=== PATIENT | male | born 1955 | race Caucasian/White ===

== ENCOUNTER 2017-12-18 14:35 | Inpatient (IN) | payer BC ==
[~2017-12-18] VITALS: Ht 190.5 cm; Wt 83.9 kg
[2017-12-18 18:35] VITALS: BP_SYST 136
[2017-12-18 19:00] VITALS: BP_SYST 136
[2017-12-18] MEDS: KCL 20 mEq in D5W 1000 mL 1,000 ML IV SCH (19:15)
[2017-12-18] MEDS ORDERED: HYDROmorphone 2 MG/ML VIAL IVP PRN (20:00)
[2017-12-18] MEDS ORDERED: metroNIDAZOLE 500 mg/NS 100 ML IV ONE (20:13)
[2017-12-18] MEDS: HYDROmorphone 2 MG/ML VIAL IVP PRN (20:14)
[2017-12-18] MEDS ORDERED: DIPHENHYDRAMINE INJ 50 MG/ML VIAL IVP PRN (21:15)
[2017-12-18] MEDS ORDERED: DOCUSATE SODIUM 100 MG CAPSULE PO PRN (21:15)
[2017-12-18] MEDS ORDERED: ACETAMINOPHEN 325 MG TABLET PO PRN (21:15)
[2017-12-18] MEDS ORDERED: LORazepam 1 MG TABLET PO PRN (21:15)
[2017-12-18] MEDS ORDERED: MAGNESIUM OXIDE 400 MG TABLET PO PRN (21:15)
[2017-12-18] MEDS ORDERED: METOPROLOL TARTRATE 50 MG TABLET PO SCH (21:15)
[2017-12-18] MEDS ORDERED: HYDROcodone/ACETAMIN 10-325 MG TAB PO PRN (21:15)
[2017-12-18] MEDS ORDERED: KCL 20 mEq in 100 mL (PREMIX) 100 ML IV ONE (21:35)
[2017-12-18] MEDS: metroNIDAZOLE 500 mg/NS 100 ML IV SCH (23:07)
[2017-12-18] MEDS: ONDANSETRON HCL 4 MG/2 ML VIAL IVP PRN (23:40)
[2017-12-19] MEDS: HYDROmorphone 2 MG/ML VIAL IVP PRN ×6 (00:16→22:30)
[2017-12-19 00:27] VITALS: BP_SYST 125
[2017-12-19] MEDS: KCL 20 mEq in D5W 1000 mL 1,000 ML IV SCH ×2 (03:15→11:03)
[2017-12-19] MEDS: ONDANSETRON HCL 4 MG/2 ML VIAL IVP PRN ×5 (06:02→22:29)
[2017-12-19 07:57] VITALS: BP_SYST 117
[2017-12-19] MEDS: LACTOBACILLUS RHAMNOSUS GG 1 CAP CAPSULE PO SCH (08:27)
[2017-12-19] MEDS: SIMETHICONE 80 MG TAB.CHEW PO SCH ×3 (08:28→20:41)
[2017-12-19] MEDS: TAMSULOSIN HCL 0.4 MG CAP PO SCH (08:28)
[2017-12-19] MEDS: ASPIRIN 81 MG TAB.CHEW PO SCH (08:28)
[2017-12-19] MEDS: metroNIDAZOLE 500 mg/NS 100 ML IV SCH (08:40)
[2017-12-19] MEDS: cefTRIAXone 1 GM in D5W 50 ML IV SCH (08:40)
[2017-12-19] MEDS: amLODIPine BESYLATE 10 MG TABLET PO SCH (09:00)
[2017-12-19] MEDS ORDERED: FAMOTIDINE 20 MG TABLET PO SCH (09:00)
[2017-12-19] MEDS ORDERED: POTASSIUM CHLORIDE 20 MEQ/PKT PACKET PO SCH (09:00)
[2017-12-19] MEDS: AMIODARONE HCL 200 MG TABLET PO SCH (09:34)
[2017-12-19 09:37] VITALS: BP_SYST 118
[2017-12-19] MEDS: RIVAROXABAN 10 MG TABLET PO SCH (11:00)
[2017-12-19 12:40] VITALS: BP_SYST 112
[2017-12-19 16:40] VITALS: BP_SYST 120
[2017-12-19 20:00] VITALS: BP_SYST 134
[2017-12-19] MEDS: ATORVASTATIN 20 MG TABLET PO SCH (20:41)
[2017-12-20] VITALS (7 sets, daily range): BP systolic 106–125
[2017-12-20] MEDS: ONDANSETRON HCL 4 MG/2 ML VIAL IVP PRN ×5 (02:40→22:59)
[2017-12-20] MEDS: HYDROmorphone 2 MG/ML VIAL IVP PRN ×4 (02:40→18:47)
[2017-12-20 06:41] LABS: CALCIUM 7.8 mg/dL (8.4-11.0); CREATININE 1.77 mg/dL (0.55-1.30); PHOSPHORUS 3.9 mg/dL (2.7-4.5); POTASSIUM 3.7 mmol/L (3.5-5.1)
[2017-12-20] MEDS: KCL 20 mEq in D5W 1000 mL 1,000 ML IV SCH ×3 (06:48→23:06)
[2017-12-20 07:02] LABS: BASOPHILS % (AUTO) 0.3 % (0.0-2.0); EOSINOPHILS # (AUTO) 0.2 K/uL (0.0-0.4); EOSINOPHILS % (AUTO) 1.6 % (0.0-4.0); HEMATOCRIT 24.1 % (36-48); HEMOGLOBIN 8.5 g/dL (12.0-16.0); LYMPHOCYTES # (AUTO) 1.1 K/uL (1.0-5.5); LYMPHOCYTES % (AUTO) 7.2 % (20.5-51.5); MEAN CORPUSCULAR HEMOGLOBIN 35 pg (27-31); MEAN CORPUSCULAR HGB CONC 35 % (32-36); MEAN CORPUSCULAR VOLUME 100 fL (79.0-98.0); MONOCYTES # (AUTO) 1.1 K/uL (0.0-1.0); MONOCYTES % (AUTO) 7.8 % (1.7-9.3); NEUTROPHILS # (AUTO) 12.3 K/uL (1.8-7.7); NEUTROPHILS % (AUTO) 83.1 % (40.0-70.0); PLATELET COUNT (AUTO) 387 K/uL (130-430); RED BLOOD CELL COUNT(AUTO) 2.42 MIL/uL (4.2-6.2); RED CELL DISTRIBUTION WIDTH 15.6 % (9.0-15.0); WHITE BLOOD COUNT (AUTO) 14.7 K/uL (4.8-10.8)
[2017-12-20] MEDS: cefTRIAXone 1 GM in D5W 50 ML IV SCH (09:46)
[2017-12-20] MEDS ORDERED: MAGNESIUM SULFATE 50 ML IV ONE (10:15)
[2017-12-20] MEDS: TAMSULOSIN HCL 0.4 MG CAP PO SCH (11:06)
[2017-12-20] MEDS: LACTOBACILLUS RHAMNOSUS GG 1 CAP CAPSULE PO SCH (11:06)
[2017-12-20] MEDS: SIMETHICONE 80 MG TAB.CHEW PO SCH ×3 (11:06→20:23)
[2017-12-20] MEDS: RIVAROXABAN 10 MG TABLET PO SCH (11:06)
[2017-12-20] MEDS: amLODIPine BESYLATE 10 MG TABLET PO SCH (11:07)
[2017-12-20] MEDS: ASPIRIN 81 MG TAB.CHEW PO SCH (11:07)
[2017-12-20] MEDS: AMIODARONE HCL 200 MG TABLET PO SCH (11:08)
[2017-12-20] MEDS: ATORVASTATIN 20 MG TABLET PO SCH (20:23)
[2017-12-21] MEDS ORDERED: KCL 20 mEq in 100 mL (PREMIX) 100 ML IV ONE (04:10)
[2017-12-21 07:03] LABS: BASOPHILS # (AUTO) 0.1 K/uL (0.0-0.2); BASOPHILS % (AUTO) 0.5 % (0.0-2.0); EOSINOPHILS # (AUTO) 0.5 K/uL (0.0-0.4); HEMATOCRIT 24.6 % (36-48); HEMOGLOBIN 8.5 g/dL (12.0-16.0); LYMPHOCYTES # (AUTO) 1.2 K/uL (1.0-5.5); LYMPHOCYTES % (AUTO) 9.4 % (20.5-51.5); MEAN CORPUSCULAR HEMOGLOBIN 34 pg (27-31); MEAN CORPUSCULAR HGB CONC 35 % (32-36); MEAN CORPUSCULAR VOLUME 98 fL (79.0-98.0); MONOCYTES # (AUTO) 1.2 K/uL (0.0-1.0); MONOCYTES % (AUTO) 9.4 % (1.7-9.3); NEUTROPHILS # (AUTO) 9.5 K/uL (1.8-7.7); NEUTROPHILS % (AUTO) 76.7 % (40.0-70.0); PLATELET COUNT (AUTO) 425 K/uL (130-430); RED BLOOD CELL COUNT(AUTO) 2.52 MIL/uL (4.2-6.2); RED CELL DISTRIBUTION WIDTH 15.2 % (9.0-15.0); WHITE BLOOD COUNT (AUTO) 12.5 K/uL (4.8-10.8)
[2017-12-21 07:08] LABS: CREATININE 1.57 mg/dL (0.55-1.30); PHOSPHORUS 3.7 mg/dL (2.7-4.5); POTASSIUM 3.4 mmol/L (3.5-5.1)
[2017-12-21 08:00] VITALS: BP_SYST 120; BP_SYST 128
[2017-12-21] MEDS: cefTRIAXone 1 GM in D5W 50 ML IV SCH (09:45)
[2017-12-21] MEDS: SIMETHICONE 80 MG TAB.CHEW PO SCH ×4 (09:45→20:50)
[2017-12-21] MEDS: PANTOPRAZOLE SODIUM 40 MG/VIAL (PROTONIX) IVP SCH (09:45)
[2017-12-21] MEDS: LACTOBACILLUS RHAMNOSUS GG 1 CAP CAPSULE PO SCH (09:46)
[2017-12-21] MEDS: TAMSULOSIN HCL 0.4 MG CAP PO SCH (09:46)
[2017-12-21] MEDS: ASPIRIN 81 MG TAB.CHEW PO SCH (09:46)
[2017-12-21] MEDS: RIVAROXABAN 10 MG TABLET PO SCH (09:46)
[2017-12-21] MEDS: amLODIPine BESYLATE 10 MG TABLET PO SCH (09:55)
[2017-12-21] MEDS: AMIODARONE HCL 200 MG TABLET PO SCH (09:56)
[2017-12-21] MEDS: ONDANSETRON HCL 4 MG/2 ML VIAL IVP PRN (14:22)
[2017-12-21 15:41] VITALS: BP_SYST 110
[2017-12-21 16:00] VITALS: BP_SYST 118
[2017-12-21] MEDS: KCL 20 mEq in D5W 1000 mL 1,000 ML IV SCH ×2 (16:30→17:54)
[2017-12-21 20:10] VITALS: BP_SYST 124
[2017-12-21] MEDS: ATORVASTATIN 20 MG TABLET PO SCH (20:50)
[2017-12-22] MEDS: KCL 20 mEq in D5W 1000 mL 1,000 ML IV SCH (00:23)
[2017-12-22 00:58] VITALS: BP_SYST 121
[2017-12-22 06:21] LABS: BASOPHILS % (AUTO) 0.4 % (0.0-2.0); EOSINOPHILS # (AUTO) 0.3 K/uL (0.0-0.4); EOSINOPHILS % (AUTO) 2.5 % (0.0-4.0); HEMATOCRIT 24.1 % (36-48); HEMOGLOBIN 8.3 g/dL (12.0-16.0); LYMPHOCYTES # (AUTO) 1.1 K/uL (1.0-5.5); LYMPHOCYTES % (AUTO) 9.4 % (20.5-51.5); MEAN CORPUSCULAR HEMOGLOBIN 33 pg (27-31); MEAN CORPUSCULAR HGB CONC 35 % (32-36); MEAN CORPUSCULAR VOLUME 97 fL (79.0-98.0); MONOCYTES # (AUTO) 1.1 K/uL (0.0-1.0); MONOCYTES % (AUTO) 9.3 % (1.7-9.3); NEUTROPHILS # (AUTO) 9.1 K/uL (1.8-7.7); NEUTROPHILS % (AUTO) 78.4 % (40.0-70.0); PLATELET COUNT (AUTO) 443 K/uL (130-430); RED BLOOD CELL COUNT(AUTO) 2.49 MIL/uL (4.2-6.2); RED CELL DISTRIBUTION WIDTH 15.8 % (9.0-15.0); WHITE BLOOD COUNT (AUTO) 11.6 K/uL (4.8-10.8)
[2017-12-22 06:47] LABS: ALBUMIN 2.2 g/dL (3.4-4.8); CALCIUM 7.8 mg/dL (8.4-11.0); CREATININE 1.6 mg/dL (0.55-1.30); PHOSPHORUS 3.5 mg/dL (2.7-4.5); POTASSIUM 3.4 mmol/L (3.5-5.1); TOTAL BILIRUBIN 0.5 mg/dL (0.0-1.0)
[2017-12-22 06:57] LABS: TOTAL IRON BIND. CAPACITY 118 ug/dL (250-450)
[2017-12-22 08:00] VITALS: BP_SYST 114
[2017-12-22 11:59] VITALS: BP_SYST 145
[2017-12-22] MEDS: PANTOPRAZOLE SODIUM 40 MG/VIAL (PROTONIX) IVP SCH (14:15)
[2017-12-22] MEDS: TAMSULOSIN HCL 0.4 MG CAP PO SCH (14:15)
[2017-12-22] MEDS: LACTOBACILLUS RHAMNOSUS GG 1 CAP CAPSULE PO SCH (14:15)
[2017-12-22] MEDS: SIMETHICONE 80 MG TAB.CHEW PO SCH ×3 (14:16→20:32)
[2017-12-22] MEDS: ASPIRIN 81 MG TAB.CHEW PO SCH (14:16)
[2017-12-22] MEDS: RIVAROXABAN 10 MG TABLET PO SCH (14:18)
[2017-12-22] MEDS: amLODIPine BESYLATE 10 MG TABLET PO SCH (14:20)
[2017-12-22] MEDS: AMIODARONE HCL 200 MG TABLET PO SCH (14:27)
[2017-12-22 20:00] VITALS: BP_SYST 113
[2017-12-22] MEDS: ATORVASTATIN 20 MG TABLET PO SCH (20:32)
[2017-12-23] VITALS (7 sets, daily range): BP systolic 92–133
[2017-12-23] MEDS: KCL 20 mEq in D5W 1000 mL 1,000 ML IV SCH ×2 (00:30→08:30)
[2017-12-23 07:17] LABS: BASOPHILS % (AUTO) 0.4 % (0.0-2.0); EOSINOPHILS # (AUTO) 0.4 K/uL (0.0-0.4); EOSINOPHILS % (AUTO) 3.5 % (0.0-4.0); HEMATOCRIT 25.1 % (36-54); HEMOGLOBIN 8.6 g/dL (14.0-18.0); LYMPHOCYTES # (AUTO) 1.7 K/uL (1.0-5.5); LYMPHOCYTES % (AUTO) 13.7 % (20.5-51.5); MEAN CORPUSCULAR HEMOGLOBIN 33 pg (27-31); MEAN CORPUSCULAR HGB CONC 34 % (32-36); MEAN CORPUSCULAR VOLUME 95 fL (79.0-98.0); MONOCYTES # (AUTO) 1.4 K/uL (0.0-1.0); MONOCYTES % (AUTO) 11.7 % (1.7-9.3); NEUTROPHILS # (AUTO) 8.7 K/uL (1.8-7.7); NEUTROPHILS % (AUTO) 70.7 % (40.0-70.0); PLATELET COUNT (AUTO) 483 K/uL (130-430); RED BLOOD CELL COUNT(AUTO) 2.65 MIL/uL (4.2-6.2); RED CELL DISTRIBUTION WIDTH 15.6 % (9.0-15.0); WHITE BLOOD COUNT (AUTO) 12.2 K/uL (4.8-10.8)
[2017-12-23 07:50] LABS: CREATININE 1.49 mg/dL (0.55-1.30); POTASSIUM 3.7 mmol/L (3.5-5.1)
[2017-12-23] MEDS: SIMETHICONE 80 MG TAB.CHEW PO SCH ×3 (08:42→20:21)
[2017-12-23] MEDS: PANTOPRAZOLE SODIUM 40 MG/VIAL (PROTONIX) IVP SCH (08:42)
[2017-12-23] MEDS: amLODIPine BESYLATE 10 MG TABLET PO SCH (08:43)
[2017-12-23] MEDS: ASPIRIN 81 MG TAB.CHEW PO SCH (08:43)
[2017-12-23] MEDS: TAMSULOSIN HCL 0.4 MG CAP PO SCH (08:44)
[2017-12-23] MEDS: RIVAROXABAN 10 MG TABLET PO SCH (08:44)
[2017-12-23] MEDS: AMIODARONE HCL 200 MG TABLET PO SCH (08:44)
[2017-12-23] MEDS: LACTOBACILLUS RHAMNOSUS GG 1 CAP CAPSULE PO SCH (08:44)
[2017-12-23] MEDS ORDERED: AMIO100T4 PO (09:47)
[2017-12-23] MEDS ORDERED: METO-442 PO (09:48)
[2017-12-23] MEDS ORDERED: AMLO2.5T2 PO (09:48)
[2017-12-23] MEDS ORDERED: LIP40 PO (09:48)
[2017-12-23] MEDS ORDERED: RIVA1TAB PO (09:49)
[2017-12-23] MEDS: ATORVASTATIN 20 MG TABLET PO SCH (20:17)
[2017-12-24 01:23] VITALS: BP_SYST 100
[2017-12-24 06:53] LABS: BASOPHILS # (AUTO) 0.1 K/uL (0.0-0.2); BASOPHILS % (AUTO) 0.7 % (0.0-2.0); EOSINOPHILS # (AUTO) 0.5 K/uL (0.0-0.4); EOSINOPHILS % (AUTO) 4.3 % (0.0-4.0); HEMATOCRIT 25.8 % (36-54); HEMOGLOBIN 8.9 g/dL (14.0-18.0); LYMPHOCYTES # (AUTO) 1.7 K/uL (1.0-5.5); LYMPHOCYTES % (AUTO) 14.1 % (20.5-51.5); MEAN CORPUSCULAR HEMOGLOBIN 33 pg (27-31); MEAN CORPUSCULAR HGB CONC 35 % (32-36); MEAN CORPUSCULAR VOLUME 96 fL (79.0-98.0); MONOCYTES # (AUTO) 1.5 K/uL (0.0-1.0); MONOCYTES % (AUTO) 12.6 % (1.7-9.3); NEUTROPHILS # (AUTO) 8.1 K/uL (1.8-7.7); NEUTROPHILS % (AUTO) 68.3 % (40.0-70.0); PLATELET COUNT (AUTO) 459 K/uL (130-430); RED BLOOD CELL COUNT(AUTO) 2.69 MIL/uL (4.2-6.2); RED CELL DISTRIBUTION WIDTH 15.5 % (9.0-15.0); WHITE BLOOD COUNT (AUTO) 11.9 K/uL (4.8-10.8)
[2017-12-24 07:24] LABS: CALCIUM 8.2 mg/dL (8.4-11.0); CREATININE 1.5 mg/dL (0.55-1.30); POTASSIUM 3.8 mmol/L (3.5-5.1)
[2017-12-24 08:00] VITALS: BP_SYST 93
[2017-12-24 08:07] LABS: FOLATE (FOLIC ACID) 14.9 ng/mL (>3.0)
[2017-12-24] MEDS: AMIODARONE HCL 200 MG TABLET PO SCH (09:00)
[2017-12-24] MEDS: ASPIRIN 81 MG TAB.CHEW PO SCH (09:00)
[2017-12-24] MEDS: TAMSULOSIN HCL 0.4 MG CAP PO SCH (09:00)
[2017-12-24] MEDS: SIMETHICONE 80 MG TAB.CHEW PO SCH (09:00)
[2017-12-24] MEDS: RIVAROXABAN 10 MG TABLET PO SCH (09:00)
[2017-12-24] MEDS: PANTOPRAZOLE SODIUM 40 MG/VIAL (PROTONIX) IVP SCH (09:00)
[2017-12-24] MEDS: amLODIPine BESYLATE 10 MG TABLET PO SCH (09:00)
[2017-12-24] MEDS: LACTOBACILLUS RHAMNOSUS GG 1 CAP CAPSULE PO SCH (09:00)
[2017-12-24] MEDS ORDERED: MIDAZOLAM HCL 5 MG/5 ML VIAL ONE (10:30)
[2017-12-24] MEDS: MEPERIDINE HCL/PF 100 MG/ML AMP ONE ×3 (10:37→10:49)
[2017-12-24] MEDS: MIDAZOLAM HCL 5 MG/5 ML VIAL ONE ×5 (10:37→10:49)
[2017-12-24] MEDS ORDERED: SIMETHICONE 40 MG/0.6 ML ML ONE (10:52)
[2017-12-24 12:49] VITALS: BP_SYST 94
[2017-12-24 16:31] VITALS: BP_SYST 91
== END 2017-12-24 18:46 | disposition home health service (06) | DRG 871 ==
LOC: SMU 18:31 → EDSEX 18:31
PROVIDERS: ADMIT Family Medicine; ATTEND Family Medicine
PROC: 0DB78ZX Excision of Stomach, Pylorus, Via Natural or Artificial Opening Endoscopic, Diagnostic (ICD-10-PCS; principal; 2017-12-24 13:45)
DX: A41.9 Sepsis, unspecified organism (principal); E43 Unspecified severe protein-calorie malnutrition; J69.0 Pneumonitis due to inhalation of food and vomit; N17.0 Acute kidney failure with tubular necrosis; N18.6 End stage renal disease; G93.41 Metabolic encephalopathy; E87.1 Hypo-osmolality and hyponatremia; I12.0 Hypertensive chronic kidney disease with stage 5 chronic kidney disease or end stage renal disease; D63.8 Anemia in other chronic diseases classified elsewhere; E78.5 Hyperlipidemia, unspecified; E87.6 Hypokalemia; I48.91 Unspecified atrial fibrillation; E86.0 Dehydration; R13.10 Dysphagia, unspecified; K44.9 Diaphragmatic hernia without obstruction or gangrene; K29.70 Gastritis, unspecified, without bleeding; E83.51 Hypocalcemia; E83.42 Hypomagnesemia; Z68.23 Body mass index [BMI] 23.0-23.9, adult; Z90.49 Acquired absence of other specified parts of digestive tract; Z86.718 Personal history of other venous thrombosis and embolism; Z22.322 Carrier or suspected carrier of Methicillin resistant Staphylococcus aureus; Z90.81 Acquired absence of spleen
CPT/HCPCS: 36415; 43239; 71045; 74220-TC; 74240-TC; 80048; 80053; 82272; 82607; 82728; 82746; 83540-TC; 83550-TC; 83690-TC; 83735-TC; 84100-TC; 85025; 87081; 97116-GP; 97530-GP; A9547; C9113; J0696; J1170; J2175; J2250; J2405; J3475; J3480; J3490; J7060